=== PATIENT | female | born 1985 | race Hispanic/Latino ===

== ENCOUNTER 2024-09-11 12:48 | Emergency (ER) | payer BC, OTHER ==
[2024-09-11] MEDS ORDERED: CYCLOBENZAPRINE 10 MG TAB ONE (13:41)
[2024-09-11] MEDS ORDERED: IBUPROFEN 200 MG TAB PO ONE (13:41)
--- NOTE | 2024-09-11 13:45 | RAD REPORT ---
EXAMINATION: Lumbar Spine 3 Views CLINICAL INDICATION: Back pain FINDINGS: No fracture or dislocation seen.
--- NOTE | 2024-09-11 13:46 | RAD REPORT ---
Exam:Wrist Right 3 View HISTORY: Right wrist pain FINDINGS: No fracture or dislocation seen If the patient continues to have symptoms to suggest an occult fracture then follow-up x-ray in 7 day s would be recommended
--- NOTE | 2024-09-11 13:46 | RAD REPORT ---
Exam:Wrist Left 3 View HISTORY: Left wrist pain FINDINGS: No fracture or dislocation seen. If the patient continues to have symptoms to suggest an occult fracture then follow-up x-ray in 7 day s would be recommended
[2024-09-11 14:42] LABS: Specific Gravity 1.024 (1.005-1.030)
[2024-09-11 14:43] LABS: Specific Gravity 1.024 (1.005-1.030); Sqamous Epithelial <5 /HPF (None Seen); Urine Bacteria None Seen /HPF (<20); Urine Bilirubin NEGATIVE (Negative); Urine Blood 2+ (Negative); Urine Clarity Extremely Turbid (Clear); Urine Color Light-Yellow (Yellow); Urine Crystals Unidentified Few /HPF (None Seen); Urine Culture Reflex Order NOT NEEDED; Urine Glucose NEGATIVE (Negative); Urine Ketones 1+ (Negative); Urine Microscopic Reflex YN ORDER UMIC; Urine Mucus Slight /HPF (None Seen); Urine Nitrite NEGATIVE (Negative); Urine Protein TRACE (Negative); Urine RBC <5 /HPF (None Seen); Urine Urobilinogen Normal (Normal); Urine Yeast (Budding) Trace /HPF (None Seen); Urine pH 5.5 (5.0-7.0)
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
[2024-09-11 20:10] VITALS: O2SAT 98
[2024-09-11 20:11] VITALS: BP 140/91
== END 2024-09-11 15:07 | disposition home or self-care (01) ==
LOC: ER 12:48
DX: M25.532 Pain in left wrist (principal); M25.531 Pain in right wrist; M54.50 Low back pain, unspecified; V43.53XA Car driver injured in collision with pick-up truck in traffic accident, initial encounter
CPT/HCPCS: 72100; 81001; 81025; 99282